=== PATIENT | female | born 1990 | race Caucasian/White ===

== ENCOUNTER 2022-07-04 08:27 | Inpatient (IN) | payer BC ==
[2022-07-04 08:57] VITALS: BMI 31.6
[2022-07-04] MEDS ORDERED: Misoprostol 200 MCG TAB PR PRN (09:46)
[2022-07-04] MEDS ORDERED: Lidocaine 1% (PF) 30 ML VIAL SC PRN (09:46)
[2022-07-04] MEDS ORDERED: Promethazine HCl 25 MG/ML VIAL IM PRN ×3 (09:46→18:46)
[2022-07-04] MEDS ORDERED: Fentanyl 100 MCG/2 ML VIAL SLOW IVP PRN (09:46)
[2022-07-04] MEDS ORDERED: hydrALAZINE 20 MG/ML VIAL SLOW IVP PRN ×2 (09:46→18:46)
[2022-07-04] MEDS ORDERED: Ibuprofen 800 MG TAB PO PRN (09:46)
[2022-07-04] MEDS ORDERED: Diphenoxylate HCl/Atropine Tablet PO PRN ×2 (09:46)
[2022-07-04] MEDS ORDERED: Ondansetron PF 4 MG/2 ML Vial IVP PRN ×3 (09:46→18:46)
[2022-07-04] MEDS ORDERED: Butorphanol Tartrate 1 MG/ML VIAL SLOW IVP PRN (09:46)
[2022-07-04] MEDS ORDERED: Carboprost 250 MCG/ML AMP IM PRN (09:46)
[2022-07-04] MEDS ORDERED: Methylergonovine 0.2 MG/ML VIAL IM PRN (09:46)
[2022-07-04] MEDS ORDERED: Acetaminophen 500 MG TAB PO PRN (09:46)
[2022-07-04] MEDS ORDERED: Misoprostol 100 MCG TAB VAG SCH (10:00)
[2022-07-04] MEDS ORDERED: Lactated Ringer's 1,000 ML IV SCH (10:00)
[2022-07-04] MEDS ORDERED: NS w/ Oxytocin 30 units 500 ML IV SCH ×2 (10:00)
[2022-07-04] MEDS ORDERED: Fentanyl 2 mcg/Bup 0.1% Cadd 100 ML ONE (10:06)
[2022-07-04 10:08] LABS: Hemoglobin 11.9 g/dL (12.0-15.5); Mean Corpuscular HGB CONC 36.1 g/dL (32.0-36.0); Mean Corpuscular Hemoglobin 31.2 pg (27.0-33.0); Mean Corpuscular Volume 86.4 fl (81.6-98.3); Mean Platelet Volume 13.1 fl (7.4-10.4); Platelet Count 200 10x3/uL (150-450); RBC Distribution Width 13.6 % (11.5-14.5); Red Blood Cell (RBC) Count 3.82 10x6/uL (3.90-5.03); White Blood Cell (WBC) Count 12.2 10x3/uL (3.5-10.5)
[2022-07-04 10:30] LABS: HBSAg Index 0.12 S/CO (0-0.99); Hep B Surf Ag Non-Reactive S/CO (NonReactive)
[2022-07-04 10:31] LABS: Syphilis Antibody Nonreactive (Nonreactive); Syphilis Antibody Index 0.04 S/CO (<1.00 Non-Reactive)
[2022-07-04] MEDS ORDERED: Naloxone HCl 0.4 mg/ml Vial IVP PRN ×2 (10:52)
[2022-07-04] MEDS ORDERED: ePHEDrine Sulfate 50 MG/10 ML VIAL SLOW IVP PRN (10:52)
[2022-07-04] MEDS ORDERED: Acetaminophen 325 MG TAB PO PRN (10:52)
[2022-07-04] MEDS ORDERED: diphenhydrAMINE 50 MG/ML VIAL IVP PRN (10:52)
[2022-07-04] MEDS ORDERED: Lactated Ringer's 500 ML IV PRN (10:52)
[2022-07-04] MEDS ORDERED: Moisturizing Cream (Eucerin) 113 GM JAR TOP PRN (10:52)
[2022-07-04] MEDS ORDERED: Communication Order-Pharmacy FS SCH (11:00)
[2022-07-04] MEDS ORDERED: Fentanyl 2 mcg/Bupivacaine 0.1% Cassette 100 ML EPIDURAL SCH (11:00)
[2022-07-04] MEDS ORDERED: Misoprostol 200 MCG TAB ONE (15:59)
[2022-07-04 16:07] LABS: RapidComm Collect By NURSE; pH (Cord, venous) 7.258 (7.250-7.350)
[2022-07-04 16:08] LABS: RapidComm Collect By NURSE
[2022-07-04] MEDS ORDERED: Measles/Mumps/Rubella 10 MCG/0.5 ML VIAL SC ONE (16:17)
[2022-07-04] MEDS ORDERED: Bupivacaine HCl 0.5%/Epinephrine 1:200,000/PF 30 ml Vial ONE (18:25)
[2022-07-04] MEDS ORDERED: HYDROcodone/Acetaminophen 5/325 mg Tablet PO PRN ×2 (18:46)
[2022-07-04] MEDS ORDERED: Lanolin Ointment 7 GM TUBE TOP PRN (18:46)
[2022-07-04] MEDS ORDERED: Boostrix 0.5 ML (Tdap) VIAL (>/=7 yrs of age) IM ONE (18:46)
[2022-07-04] MEDS ORDERED: Milk Of Magnesia 30 ML UDCUP PO PRN (18:46)
[2022-07-04] MEDS ORDERED: Bisacodyl 10 MG SUPP PR PRN (18:46)
[2022-07-04] MEDS ORDERED: diphenhydrAMINE 25 MG CAP PO PRN (18:46)
[2022-07-04] MEDS ORDERED: Preparation H Ointment 28 GM TUBE PR PRN (18:46)
[2022-07-04] MEDS ORDERED: Benzocaine-Menthol 82.5 ML CAN TOP PRN (18:46)
[2022-07-04] MEDS ORDERED: Ferrous Sulfate 325 MG TAB PO SCH (20:15)
[2022-07-04] MEDS: Docusate 100 MG CAP PO SCH (21:47)
[2022-07-04] MEDS: Ibuprofen 800 MG TAB PO SCH (21:47)
[2022-07-05 03:49] LABS: Hemoglobin 8.9 g/dL (12.0-15.5)
[2022-07-05] MEDS: Ibuprofen 800 MG TAB PO SCH ×3 (06:19→21:31)
[2022-07-05] MEDS: Prenatal Vitamin 1 TAB PO SCH (08:43)
[2022-07-05] MEDS: Ferrous Sulfate 325 MG TAB PO SCH ×2 (08:43→18:33)
[2022-07-05] MEDS: Docusate 100 MG CAP PO SCH ×2 (08:43→21:31)
[2022-07-06] MEDS: Ibuprofen 800 MG TAB PO SCH ×2 (05:04→13:42)
[2022-07-06 07:37] VITALS: BP 109/60; TEMP 97.8
[2022-07-06] MEDS: Ferrous Sulfate 325 MG TAB PO SCH (09:19)
[2022-07-06] MEDS: Prenatal Vitamin 1 TAB PO SCH (09:19)
[2022-07-06] MEDS: Docusate 100 MG CAP PO SCH (09:19)
== END 2022-07-06 14:20 | disposition home or self-care (01) | DRG 806 ==
LOC: CSHLD/OP 08:27 → CSHLD 09:40 → CSHPP 18:15
PROVIDERS: ADMIT Student in an Organized Health Care Education/Training Program; ATTEND Student in an Organized Health Care Education/Training Program
PROC: 10D07Z6 Extraction of Products of Conception, Vacuum, Via Natural or Artificial Opening (ICD-10-PCS; principal; 2022-07-04)
PROC: 10907ZC Drainage of Amniotic Fluid, Therapeutic from Products of Conception, Via Natural or Artificial Opening (ICD-10-PCS; 2022-07-04)
PROC: 0W8NXZZ Division of Female Perineum, External Approach (ICD-10-PCS; 2022-07-04)
DX: O76 Abnormality in fetal heart rate and rhythm complicating labor and delivery (principal); D62 Acute posthemorrhagic anemia; Z37.0 Single live birth; Z3A.40 40 weeks gestation of pregnancy; Z88.2 Allergy status to sulfonamides; O70.1 Second degree perineal laceration during delivery; O90.81 Anemia of the puerperium
CPT/HCPCS: 36415; 51702; 82805; 85014; 85018; 85027; 86780; 86850; 86900; 86901; 87340; 90707; 99285; J2590; J7120

== ENCOUNTER 2023-11-30 13:08 | Outpatient (CLI) | payer OTHER | END 2023-11-30 13:09 | disposition home or self-care (01) | LOC: CSHRAD 13:08 | PROVIDERS: ATTEND Family Medicine | DX: G40.409 Other generalized epilepsy and epileptic syndromes, not intractable, without status epilepticus (principal) | CPT/HCPCS: 70470 ==

== ENCOUNTER 2024-01-31 08:13 | Outpatient (CLI) | payer OTHER ==
[2024-01-31] MEDS ORDERED: Magnevist 469MG/ML 20 ML VIAL ONE (11:37)
== END 2024-01-31 08:14 | disposition home or self-care (01) ==
LOC: CSHMRI 08:13
PROVIDERS: ATTEND Psychiatry & Neurology Epilepsy
DX: G40.409 Other generalized epilepsy and epileptic syndromes, not intractable, without status epilepticus (principal)
CPT/HCPCS: 70553; 76377; A9579